=== PATIENT | female | born 1940 | race Caucasian/White ===

== ENCOUNTER 2019-10-19 08:55 | Emergency (ER) | payer MEDICARE, OTHER ==
--- NOTE | 2019-10-19 10:02 | CT ---
[id number] CT/CT Head WO IV EXAM: CT Head WO IV CLINICAL DATA: RIGHT SIDED FACIAL PAIN, ? TRIGEMINAL NEURALGIA. COMPARISON STUDY: None FINDINGS: No intracranial hemorrhage, extra-axial fluid collection, mass, or acute ischemia. No hydrocephalus. Mild amount of periventricular white matter hypodensity, nonspecific but can be seen with sequela of chronic small vessel disease. Paranasal sinuses and mastoid air cells are clear. IMPRESSION: No acute findings in the brain. Other findings are described above. Donnie Carmona MD 10/19/19 1001 Thank you for allowing us to participate in the care of your patient.
--- NOTE | 2019-10-19 17:21 | EDM.PDOC ---
ED HPI GENERAL MEDICAL PROBLEM - General Chief Complaint: ENT Problem Stated Complaint: PAIN RT JAW Time Seen by Provider: 10/19/19 09:00 Source of Information: Reports: Patient History Limitations: Reports: No Limitations - History of Present Illness INITIAL COMMENTS - FREE TEXT/NARRATIVE: Pt. presents to ER with complaints of R sided facial/ear/lateral neck discomfort. Pt. states that it started this AM when she was eating her breakfast. She states that the discomfort was exacerbated by chewing. Denies any rash or erythema. No fever or chills. Pt. denies any history of dental pain. No sore throat. No rhinorrhea. No ear discharge. Pt. denies any chest pain or shortness of breath. She states that the discomfort is worse with palpation to the area. Denies any numbness/tingling in extremities. No issues with speech or ambulation. Pt. states that at onset, pain was 10. On arrival to ED, it was down to a 4-5. Onset: Today Onset Date: 10/19/19 Location: Reports: Head, Face Quality: Reports: Ache, Throbbing Severity: Severe Associated Symptoms: Reports: Headaches. Denies: Diaphoresis, Fever/Chills, Malaise, Nausea/Vomiting, Rash, Seizure, Syncope Left Jaw Pain Score (Numeric/FACES): 6 - Related Data Allergies Allergy/AdvReac Type Severity Reaction Status Date / Time No Known Allergies Allergy Verified 10/19/19 09:08 Home Meds: Home Meds Aspirin [Halfprin] 81 mg PO DAILY 10/19/19 [History] Cholecalciferol (Vitamin D3) [Vitamin D] 400 unit PO DAILY 10/19/19 [History] Diclofenac Sodium [Voltaren 1% Gel] 1 applic TOP BID PRN 10/19/19 [History] Flaxseed Oil 1,000 mg PO DAILY 10/19/19 [History] Ipratropium [Atrovent 0.06% Nasal [place]] 2 spray NASBOTH BID 10/19/19 [History] Levothyroxine [Synthroid] 100 mcg PO ACBREAKFAST 10/19/19 [History] Losartan [Cozaar] 100 mg PO DAILY 10/19/19 [History] Multivitamin-Min/Iron/FA/Vit K [Multi-Day Plus Minerals Tablet] 1 tab PO DAILY 01/25/20 [History] Rosuvastatin [Crestor] 10 mg PO DAILY 10/19/19 [History] Ubidecarenone [Coenzyme Q-10] 50 mg PO DAILY 10/19/19 [History] amLODIPine [Norvasc] 5 mg PO DAILY 10/19/19 [History] hydroCHLOROthiazide [Hydrochlorothiazide] 25 mg PO DAILY 10/19/19 [History] Past Medical History Cardiovascular History: Reports: Heart Murmur, High Cholesterol, Hypertension Respiratory History: Reports: Sleep Apnea Musculoskeletal History: Reports: Other (See Below) Other Musculoskeletal History: polymyalgia rheumatica Endocrine/Metabolic History: Reports: Hypothyroidism - Past Surgical History Musculoskeletal Surgical History: Reports: Arthroscopic Knee Social & Family History - Tobacco Use Smoking Status *Q: Never Smoker ED ROS GENERAL - Review of Systems Review Of Systems: See Below Constitutional: Reports: No Symptoms HEENT: Reports: Other (see HPI) Respiratory: Reports: No Symptoms Cardiovascular: Reports: No Symptoms Endocrine: Reports: No Symptoms GI/Abdominal: Reports: No Symptoms : Reports: No Symptoms Musculoskeletal: Reports: No Symptoms Skin: Reports: No Symptoms Neurological: Reports: Headache (superficial R sided facial/head pain). Denies : Paresthesia, Pre-Existing Deficit, Seizure, Tingling, Trouble Speaking, Difficulty Walking, Weakness Psychiatric: Reports: No Symptoms Hematologic/Lymphatic: Reports: No Symptoms Immunologic: Reports: No Symptoms ED EXAM, GENERAL - Physical Exam Exam: See Below Exam Limited By: No Limitations General Appearance: Alert, WD/WN, No Apparent Distress Eye Exam: Bilateral Eye: EOMI, Normal Fundi, Normal Inspection, PERRL Ears: Normal External Exam, Normal Canal, Hearing Grossly Normal, Normal TMs Ear Exam: Bilateral Ear: Auricle Normal, Canal Normal, TM normal Nose: Normal Inspection, No Blood Throat/Mouth: Normal Lips, Normal Teeth, Normal Gums, Normal Voice, No Airway Compromise, Inflammation Head: Atraumatic, Normocephalic Neck: Normal Inspection, Supple, Non-Tender, Full Range of Motion Respiratory/Chest: No Respiratory Distress, Lungs Clear, Normal Breath Sounds, No Accessory Muscle Use, Chest Non-Tender Cardiovascular: Normal Peripheral Pulses, Regular Rate, Rhythm, No Edema, No JVD , No Murmur Peripheral Pulses: 4+: Radial (L) GI/Abdominal: Normal Bowel Sounds, Soft, Non-Tender, No Organomegaly, No Distention, No Abnormal Bruit, No Mass, Pelvis Stable (Female) Exam: Deferred Rectal (Female) Exam: Deferred Back Exam: Normal Inspection, Full Range of Motion Extremities: Normal Inspection, Normal Range of Motion, Non-Tender, No Pedal Edema, Normal Capillary Refill Neurological: Alert, Oriented, CN II-XII Intact, Normal Cognition, Normal Gait, Normal Reflexes, No Motor/Sensory Deficits Psychiatric: Normal Affect, Normal Mood Skin Exam: Warm, Dry, Intact, Normal Color, No Rash Lymphatic: No Adenopathy Course - Vital Signs Last Recorded V/S: Last Vital Signs Temp 37.1 C 10/19/19 09:00 Pulse 82 10/19/19 09:00 Resp 16 10/19/19 09:00 BP 154/76 H 10/19/19 09:00 Pulse Ox 98 10/19/19 09:00 - Orders/Labs/Meds Orders: Active Orders 24 hr Category Date Time Status CULTURE STREP A CONFIRMATION [RM] Stat Lab 10/19/19 09:15 Results STREP SCRN A RAPID W CULT CONF [RM] Stat Lab 10/19/19 09:15 Results - Radiology Interpretation Free Text/Narrative:: CT brain without contrast negative for acute pathology Departure - Departure Time of Disposition: 10:30 Disposition: Home, Self-Care 01 Clinical Impression: Trigeminal neuralgia of right side of face - Discharge Information Instructions: Trigeminal Neuralgia Referrals: Alicia Flores MD [Primary Care Provider] - Forms: ED Department Discharge Additional Instructions: Home to rest. Ibuprofen 200mg 2 tabs every 4-6 hours as needed for pain Recheck in clinic in 7-10 days. Contact the ER if the pain not helped adequately by the ibuprofen, if you develop a rash or redness to the area. Sepsis Event Note - Evaluation Sepsis Screening Result: No Definite Risk - Focused Exam Date Exam was Performed: 10/19/19 Time Exam was Performed: 22:32 - My Orders Last 24 Hours: My Active Orders 10/19/19 09:15 CULTURE STREP A CONFIRMATION [RM] Stat STREP SCRN A RAPID W CULT CONF [RM] Stat - Assessment/Plan Last 24 Hours: My Active Orders 10/19/19 09:15 CULTURE STREP A CONFIRMATION [RM] Stat STREP SCRN A RAPID W CULT CONF [RM] Stat Plan: Pain was down to a 2 at time of discharge without any intervention. Advised watchful waiting and close follow-up at this point. Ibuprofen as needed for continued discomfort. Return if worsening discomfort, rash of fever. Follow-up in clinic next week with Dr. Flores. All questions were answered.
== END 2019-10-19 10:20 | disposition home or self-care (01) ==
LOC: VM.ED 08:55
DX: G50.0 Trigeminal neuralgia (principal); I10 Essential (primary) hypertension; E78.00 Pure hypercholesterolemia, unspecified; E03.9 Hypothyroidism, unspecified; Z79.82 Long term (current) use of aspirin; Z79.899 Other long term (current) drug therapy
CPT/HCPCS: 70450; 87081; 87880-QW; 99284-25; 99284-GF